=== PATIENT | female | born 1990 | race Caucasian/White ===

== ENCOUNTER 2020-05-24 14:10 | Inpatient (IN) ==
[2020-05-24] MEDS ORDERED: OXYTOCIN 30 UNITS/500 ML BAG IV PRN ×2 (15:23→19:46)
[2020-05-24 15:57] LABS: Hematocrit (blood only) 36.5 % (37-47); Hemoglobin 12.3 g/dL (12.0-16.0); Mean Corpuscular Hemoglobin 29.3 pg (25-34); Mean Corpuscular Hgb Conc 33.7 g/dL (32-36); Mean Corpuscular Volume 86.9 fL (80-100); Mean Platelet Volume 12.9 fL (7.4-10.4); Platelet Count 146 K/uL (130-400); RDW Coefficient of Variation 13.6 % (11.5-14.5); RDW Standard Deviation 43.1 fL (36.4-46.3); White Blood Count 7.86 K/uL (4.8-10.8)
--- NOTE | 2020-05-24 19:45 | History & Physical Report ---
Date of Service May 24, 2020 Assessment & Plan (1) Supervision of normal first : 29yo at 39.5 weeks GA. PROM 1. Fetus: CAT 1 2. Labor: ROM at 1320. Rare contractions. Requested time for spontaneous labor. Recommended no longer then 6hrs. 3. GBS neg 4. Vitals: WNL Admission and Anticipated Discharge Date Admission Date: May 24, 2020 History of Present Illness Primary Care Provider: Angel Adler, 29yo at 39.5 weeks GA. Presents with LOF. Denies VB, Contractions. Good FM. uncomplicated to date. OB Optional Labs: Chlamydia trachomatis RNA NOT DETECTED (NOT DETECTED) 10/22/19 Neisseria gonorrhoeae RNA NOT DETECTED (NOT DETECTED) 10/22/19 Thyroid Stimulating Hormone (TSH) 2.280 uIu/ml (0.300-4.500) 06/06/19 Labs Reviewed: Initial OB Labs (10/31/19) Blood Type & RH O+ Antibody Screen Negative HCT/HGB 13.6/40 Platelets 178 Pap Test Rubella immune RPR non reactive HBsAg negative HIV negative MCV 88.7 8-20 Week OB Labs (12/18/2019) Diabetes Screen (1hr) 66 (-) CF/SMA/cfDNA- [facility] declined MSAFP 6/24: 1HR- 132 7/6: 84/150/109 (-) GBS- [facility] Allergies Allergy/AdvReac Type Severity Reaction Status Date / Time clindamycin Allergy Hives Verified 05/24/20 15:20 Sulfa (Sulfonamide Allergy Hives Verified 05/24/20 15:20 Antibiotics) sulfamethoxazole Allergy Hives Verified 05/24/20 15:20 [From ] trimethoprim [From ] Allergy Hives Verified 05/24/20 15:20 Home Medications Home Medications Medication Instructions Recorded Confirmed Type prenat.vits,diana,zvt-[id number]-[id number] 1 tab PO DAILY 06/06/19 05/24/20 History Patient History Medical History (Updated 05/12/20 @ 11:14 by Jared Landeros Jr, MD, FACOG) HSV-1 (herpes simplex virus 1) infection Has h/o mouth ulcers - 3 lifetime outbreaks Irregular periods Surgical History H/O wrist surgery Hx of LASIK S/P tonsillectomy Family History Grandfather (Paternal) Diabetes Sister Thyroid disease Other Arthritis Breast cancer Depression Dyslipidemia Heart disease Hypertension Ovarian cyst Denies family history of Colorectal cancer Social History (Updated 10/15/19 @ 11:10 by Arelis Rene) Smoking Status: Never smoker Second Hand Exposure: No; Hx Alcohol Use: No Hx Substance Use: No Preferred Language: Filipino Communication Ability: Effective Beliefs That Will Affect Care: None marital status: marital status details: David Ambrosio(28) [phone] Current Living Situation: Spouse Current Living Situation Comment: lives with spouse, 1 dog. current occupational status: employed current occupation: [employer] Feels Safe at Home: Yes Childhood Exposure to Second-Hand Smoke: No caffeine: Yes Dental Care, Regularly: Yes Physical Activity Frequency: 3-4 Times per Week Seatbelt Use: always Sunscreen Use: Yes Do you think of yourself as: straight/heterosexual Physical Exam Constitutional: WD/WN, vitals as above Genitourinary: Manual OB Exam: + cervical dilation 3 cm, + cervical effacement 80%, + station -2 and + amniotic fluid clear, nitrazine positive and ferning present OB Exam Monitor Tracing: + external FHT monitor used, + external uterine monitor used, + category I and + normal FHT variability Results & Data ([facility]) Vital Signs (Past 12 Hours) Vital Signs Temp Pulse Resp BP 05/24/20 19:18 81 123/83 05/24/20 19:15 36.8 C 18 05/24/20 18:25 36.8 C 18 05/24/20 16:52 36.8 C 18 05/24/20 14:17 91 H 126/84 05/24/20 14:16 36.9 C 18 Coding Level of Care Code None Diagnoses Supervision of normal first Z34.00
--- NOTE | 2020-05-24 20:46 | Labor Progress Brief Note ---
Date of Service May 24, 2020 Subjective Reason For Note: Routine Evaluation Assessment & Plan (1) Supervision of normal first : 29yo at 39.5 weeks GA. PROM 1. Fetus: CAT 1 2. Labor: ROM at 1320. Rare contractions. Requested time for spontaneous labor. Discussed Pitocin. Patient agreed to augmentation. 3. GBS neg 4. Vitals: WNL Admission and Anticipated Discharge Date Admission Date: May 24, 2020 Physical Exam Genitourinary: OB Exam Abdomen: + vertex Manual OB Exam: + cervical dilation (3.5), + cervical effacement 80%, + station -2 and + amniotic fluid clear OB Exam Monitor Tracing: + external FHT monitor used, + external uterine monitor used, + category I and + normal FHT variability Results & Data ([facility]) Vital Signs (Past 12 Hours) Vital Signs Temp Pulse Resp BP 05/24/20 19:18 81 123/83 05/24/20 19:15 36.8 C 18 05/24/20 18:25 36.8 C 18 05/24/20 16:52 36.8 C 18 05/24/20 14:17 91 H 126/84 05/24/20 14:16 36.9 C 18 Coding Level of Care Code None Diagnoses Supervision of normal first Z34.00
[2020-05-24] MEDS: LACTATED RINGER'S 1,000 ML IV PRN (21:00)
[2020-05-24] MEDS ORDERED: ePHEDrine sulfate 50 MG/ML AMP ONE (22:41)
[2020-05-24] MEDS ORDERED: BUPIVACAINE 0.25% 30 ML VIAL ONE (22:42)
[2020-05-24] MEDS ORDERED: fentaNYL citrate 100 MCG/2 ML VIAL ONE (22:42)
[2020-05-24] MEDS ORDERED: fentaNYL 2MCG/ML ROPIV 1.25MG/ML 100 ML BAG EPI ONE (22:42)
[2020-05-24] MEDS ORDERED: ePHEDrine sulfate 50 MG/ML AMP IV PRN (22:48)
[2020-05-24] MEDS ORDERED: NALOXONE HCL 1 MG in SODIUM CHLORIDE 0.9% 1000ML 1,000 ML IV PRN (22:48)
[2020-05-24] MEDS ORDERED: fentaNYL 2MCG/ML ROPIV 1.25MG/ML 100 ML BAG EPI PRN (22:48)
[2020-05-24] MEDS ORDERED: NALOXONE HCL 0.4 MG/1 ML VIAL/CARP IV PRN (22:48)
[2020-05-24] MEDS ORDERED: DiphenhydrAMINE HCL 50 MG/ML VIAL IV PRN (22:48)
[2020-05-24] MEDS ORDERED: ONDANSETRON INJ 2 MG/ML 2 ML VIAL IV PRN (22:48)
--- NOTE | 2020-05-24 22:50 | Anesthesiology Consultation ---
Date of Service May 24, 2020 Assessment & Plan (1) Encounter for pre-operative examination: Chart Review Chart Review: Patient NOT seen in Pre Admission Testing and Acceptable Risk for Labor Epidural Consults Requested none History Height/Weight Height: 5 ft 6 in Weight: 98.339 kg Allergies Allergy/AdvReac Type Severity Reaction Status Date / Time clindamycin Allergy Hives Verified 05/24/20 15:20 Sulfa (Sulfonamide Allergy Hives Verified 05/24/20 15:20 Antibiotics) sulfamethoxazole Allergy Hives Verified 05/24/20 15:20 [From ] trimethoprim [From ] Allergy Hives Verified 05/24/20 15:20 Medications Home Medications Medication Instructions Recorded Confirmed Last Taken prenat.vits,diana,[id number]-[id number] 1 tab PO DAILY 06/06/19 05/24/20 Unknown Active Medications Generic Name Dose Route Start Last Admin Trade Name Freq PRN Reason Stop Dose Admin Lactated Ringer's 1,000 mls @ 125 mls/hr 05/24/20 15:23 05/24/20 22:40 Lr IV 05/26/20 15:22 999 mls/hr .Q8H PRN Titration L&D Protocol Protocol Oxytocin 30 units in 500 mls @ 4 mls/hr 05/24/20 19:46 05/24/20 21:55 Pitocin IV 05/26/20 19:45 0.24 units/hr .Q24H PRN 4 mls/hr Labor Induction/Augmentation Titration Protocol 0.24 UNITS/HR Past Medical History Medical History HSV-1 (herpes simplex virus 1) infection Has h/o mouth ulcers - 3 lifetime outbreaks Irregular periods Exercise / Class Metabolic Activity II 4-5 Yardwork/Stairs/Walk up hill Past Family History Family History Grandfather (Paternal) Diabetes Sister Thyroid disease Other Arthritis Breast cancer Depression Dyslipidemia Heart disease Hypertension Ovarian cyst Denies family history of Colorectal cancer Past Surgical History Surgical History H/O wrist surgery Hx of LASIK S/P tonsillectomy Past Anesthesia History No Hx of Anesthesia Complications and No Family Hx of Anesthesia Complications History of PONV No Hx of PONV and No Hx of Motion Sickness Social History Smoking Status: Never smoker Do You Dip or Chew Tobacco: No Hx Alcohol Use: No Hx Substance Use: No Physical Exam Vital Signs Last Vital Signs Temp 36.5 C 05/24/20 21:11 Pulse 71 05/24/20 21:37 Resp 18 05/24/20 21:11 BP 116/77 05/24/20 21:37 Testing Laboratory Results 05/24/20 15:49
[2020-05-25] MEDS: LACTATED RINGER'S 1,000 ML IV PRN ×3 (00:29→16:50)
[2020-05-25] MEDS ORDERED: Nursing to Pharmacy Communication SCH (02:00)
[2020-05-25] MEDS ORDERED: HYDROCORTISONE ACETATE 25 MG SUPP PR PRN (05:03)
[2020-05-25] MEDS ORDERED: BENZOCAINE 20% AER SPR 82.5 GM CAN EXT PRN (05:03)
[2020-05-25] MEDS ORDERED: DIPHTHERIA/TETANUS/PERTUSSIS 0.5 ML SYR/VIAL IM ONE (05:03)
[2020-05-25] MEDS ORDERED: SUPERCREAM 0.870% 15 GM JAR EXT PRN (05:03)
[2020-05-25] MEDS ORDERED: bisacodyL 10 MG SUPP PR PRN (05:03)
[2020-05-25] MEDS ORDERED: OXYTOCIN 30 UNITS/500 ML BAG IV PRN (05:03)
[2020-05-25] MEDS ORDERED: ACETAMINOPHEN 325 MG TAB PO PRN (05:03)
[2020-05-25] MEDS ORDERED: METHYLERGONOVINE MALEATE 0.2 MG/ML AMP IM STA (06:16)
[2020-05-25] MEDS ORDERED: METHYLERGONOVINE MALEATE 0.2 MG/ML AMP ONE (06:21)
[2020-05-25] MEDS ORDERED: BUTORPHANOL TARTRATE 1 MG/ML VIAL ONE (06:50)
[2020-05-25] MEDS ORDERED: SODIUM CHLORIDE 0.9% 250 ML IV PRN ×3 (06:53→08:42)
[2020-05-25 07:06] LABS: Hematocrit (blood only) 33.8 % (37-47); Hemoglobin 10.9 g/dL (12.0-16.0); Mean Corpuscular Volume 86.9 fL (80-100); Platelet Count 173 K/uL (130-400); RDW Coefficient of Variation 13.7 % (11.5-14.5); Red Blood Count 3.89 M/uL (4.2-5.4); White Blood Count 16.92 K/uL (4.8-10.8)
[2020-05-25] MEDS ORDERED: CEFAZOLIN 250 MG/ML 1 GM VIAL ONE (07:26)
[2020-05-25] MEDS ORDERED: ONDANSETRON INJ 2 MG/ML 2 ML VIAL ONE (07:26)
[2020-05-25] MEDS ORDERED: LIDOCAINE/EPINEPHRINE 2% 1:200,000 20 ML SDV ONE (07:26)
[2020-05-25] MEDS ORDERED: PHENYLEPHRINE 100MCG/ML 5ML SYR ONE (07:26)
[2020-05-25 07:33] LABS: Mean Corpuscular Hgb Conc 32.2 g/dL (32-36)
[2020-05-25 07:44] LABS: Fibrinogen 460 mg/dl (184-400); Partial Thromboplastin Ratio 0.9; Partial Thromboplastin Time 26.1 Seconds (21.0-31.0); Prothrombin Time 10.1 Seconds (9.0-12.0)
[2020-05-25] MEDS ORDERED: miSOPROStoL 200 MCG TAB PR ONE ×2 (08:09→08:41)
[2020-05-25] MEDS ORDERED: ePHEDrine sulfate 50 MG/ML AMP ONE (08:09)
[2020-05-25] MEDS ORDERED: CARBOPROST TROMETHAMINE 250 MCG/ML AMPUL IM ONE (08:09)
[2020-05-25] MEDS ORDERED: CARBOPROST TROMETHAMINE 250 MCG/ML AMPUL ONE (08:32)
[2020-05-25] MEDS: PRENATAL VITAMIN 1 TAB PO SCH (08:47)
[2020-05-25] MEDS: DOCUSATE SODIUM 100 MG CAP PO SCH ×2 (08:47→20:29)
--- NOTE | 2020-05-25 08:48 | Anesthesia Procedure Note ---
Date of Service May 25, 2020 Anesthesia Post Epidural Note Vital Signs Vital Signs: Temp Pulse Resp BP Pulse Ox 36.5 C 83 21 142/96 H 100 05/25/20 08:04 05/25/20 08:45 05/25/20 08:04 05/25/20 08:42 05/25/20 08:45 Pain Intensity Right Abdomen: Pain Intensity: 0 Left Wrist: Pain Intensity: 2 Notes Mental Status: alert / awake / arousable and participated in evaluation Patient Amnestic to Procedure: No Nausea / Vomiting: improving with treatment Pain: adequately controlled Airway Patency, RR, SpO2: stable & adequate BP & HR: stable & adequate and see Notes below Hydration State: stable & adequate Neuraxial Anesthesia: was administered and sensory block is resolving Anesthetic Complications: no major complications apparent and Pt Satisfied with anesthetic care Epidural: Removed without complications and With tip intact
--- NOTE | 2020-05-25 08:54 | Communication Note ---
Date of Service: May 25, 2020 Called by OB nursing staff as patient with hemorrhage and concern for retained placenta. Patient with slightly elevated heart rate but preserved blood pressure. Taken emergently back to the OR and placed on STD ASA monitors. A total of 15ml 2% lidocaine bolused via epidural incrementally until T6 sensory change level obtained. Patient placed in stirrups for procedure. Supplemental oxygen given (2L NC). Had to treat patient's blood pressure throughout procedure with boluses of ephedrine and phenylephrine. Hemabate was given IM per surgeon request. Also administered 1 unit pRBC given blood loss. Patient c/o some mid sternal chest burning and then vomited. Blood pressure continued to be treated but temp normal and lung sounds clear. TRALI part of differential but low likelihood at this time. A second IV was started in the operating room by OB nurse. Patient tolerated procedure (included Bakri balloon). Patient was taken to recovery in stable condition. Supplemental oxygen continued. Patient temp normal and vitals stable. A second unit of pRBC was planned by OB attending. Full report given to recovery (OB) nurse. Also signed out to sedimentationist anesthesiologist. All questions answered. Also spoke to OB attending and stated if patient has worsening hypoxia and chest pain, do CXR to r/u pulmonary infiltrates (again to r/o TRALI). David Castañeda MD Staff Anesthesiologist
--- NOTE | 2020-05-25 09:01 | Post Operative Brief Note ---
PG Immediate Post Op with CF Date of Surgery May 25, 2020 Pre & Post Diagnosis Operation Date: 05/25/20 07:00 <No data on this case meets the specified criteria> I identified the patient and participated in the time-out.: Yes Procedure Operation Date: 05/25/20 07:00 Actual Procedures p Dilatation and Curettage(Bilateral) - He Wallace MD Surgeon He Wallace MD Beater Engineer Helper None Estimated Blood Loss 600 Findings Consistent with Post-Op Diagnosis Drains Bello Catheter and Other (BAKRI (FILLED WITH 360 ML STERILE WATER)) OB Procedure charges OB Charges 36684G Bakri BEARING MACHINE OPERATOR Minor Procedure Codes D&E/D&C 76887 D&C
[2020-05-25] MEDS: METHYLERGONOVINE MALEATE 0.2 MG TAB PO SCH ×4 (10:08→20:29)
--- NOTE | 2020-05-25 10:51 | Delivery Summary ---
DATE OF OPERATION: 05/25/2020 PROCEDURE: Normal spontaneous vaginal delivery with bilateral labial laceration repairs. SURGEON: He Wallace MD. PREOPERATIVE DIAGNOSES: 1. Single intrauterine at 39 weeks 6 days gestational age. 2. Premature rupture of membranes. POSTOPERATIVE DIAGNOSES: 1. Single intrauterine at 39 weeks 6 days gestational age. 2. Premature rupture of membranes. 3. Status post delivery. ESTIMATED BLOOD LOSS DURING THE PROCEDURE: 400 mL. DRAINS: Straight cath at the completion of case for 100 mL. FLUIDS: Continuous lactated Ringer. URINE OUTPUT: Per drains. DESCRIPTION OF PROCEDURE: The patient progressed to 10 cm dilated, 100% effaced, +1 station, felt a strong urge to push and pushed for approximately 2 hours to achieve delivery. The head of the presented in LANDRY position, restituted to left transverse. No nuchal cord was noted. Body and shoulders quickly followed. was delivered to the maternal abdomen and was noted to have good tone, but not crying. An attempt at stimulation did not achieve a spontaneous cry and the cord was double clamped and cut after approximately 30 seconds. The was then taken to the waiting nursery staff for further evaluation and was noted to cry at approximately 40-45 seconds of life and was vigorous thereafter. The cord blood was then obtained. Attention was then turned to deliver placenta, which did not immediately present and bilateral labial lacerations were repaired with 3-0 Vicryl in single interrupted stitch. After completion of the repair, the placenta was noted to be at the introitus and presented spontaneously with little to no traction. The patient's bleeding was noted to be minimal at that time with uterine massage and emptying the bladder with straight cath for 100 mL. A decision was made to end the case at that time. Both mother and were in stable condition. Needle, sponge and instrument counts were correct at the completion of the case. I attest to the content of the Intraoperative Record and any orders documented therein. Any exception s are noted below.
--- NOTE | 2020-05-25 11:01 | Operative Report (OR) ---
DATE OF OPERATION: 05/25/2020 PROCEDURES: 1. Exam under anesthesia. 2. Curettage of uterus with banjo curette. 3. Bakri balloon placement. SURGEON: He Wallace MD. PREOPERATIVE DIAGNOSIS: Suspected retained placenta. POSTOPERATIVE DIAGNOSIS: Retained placenta, status post procedure. ESTIMATED BLOOD LOSS: In the OR, 600 mL. Total blood loss 2400 mL including delivery and bleeding post-delivery and prior to OR. URINE OUTPUT: Per Bello catheter. FLUIDS: Continuous lactated Ringer. One unit of packed red blood cells initiated in the OR. INDICATIONS: Catherine is a 29-year-old , presented with premature rupture of membranes. The patient was augmented and achieved a spontaneous vaginal delivery, which appeared to be uncomplicated. The patient was noted to have increased bleeding with removal of several large clots approximately an hour after delivery. The patient was given a dose of Methergine after removal of clots and fundus was initially firmer, but the patient was noted to have again retained products. The patient was evaluated and was suspected to have retained placenta. DESCRIPTION OF PROCEDURE: The patient was taken to the operating room after consents were ensured. Upon presentation, she was properly identified. The patient's epidural was bolused to achieve adequate surgical levels. A timeout was performed. The patient was prepped and draped in normal sterile fashion. A right angle retractor was placed in the vagina to visualize the cervix. A banjo curette was then used to remove the retained placenta and 2 quarter sized pieces of placenta were removed. A full curettage of the uterine lining was performed with no additional clots noted. Gentle uterine massage was performed and normal post-delivery bleeding was noted. 800 mcg of Cytotec were placed per rectum. A Bakri balloon was placed with 360 mL of fluid. A Bello catheter was then placed. Needle, sponge and instrument counts were correct at the completion of the case. The patient was taken to the recovery room in stable condition. I attest to the content of the Intraoperative Record and any orders documented therein. Any exception s are noted below.
[2020-05-25] MEDS: OXYCODONE/ACETAMINOPHEN 5mg/325mg TAB PO PRN ×2 (11:17→20:38)
[2020-05-25] MEDS: IBUPROFEN 600 MG TAB PO PRN (11:45)
[2020-05-25 14:12] LABS: Hematocrit (blood only) 29.2 % (37-47); Hemoglobin 10.1 g/dL (12.0-16.0)
[2020-05-25] MEDS: CEFAZOLIN 2000MG 2,000 MG/15 ML SYR IV SCH ×2 (14:59→23:30)
[2020-05-26] MEDS: CEFAZOLIN 2000MG 2,000 MG/15 ML SYR IV SCH (06:34)
[2020-05-26] MEDS: IBUPROFEN 600 MG TAB PO PRN ×4 (06:43→23:40)
[2020-05-26 07:09] LABS: Hematocrit (blood only) 23.5 % (37-47)
--- NOTE | 2020-05-26 07:59 | Obstetrical Progress Note ---
Date of Service May 26, 2020 Assessment & Plan (1) Encounter for care and examination after delivery: 29yo s/p complicated by PPH from retained products. Doing well now. Bleeding normal. Ambulating well without symptoms of anemia. Continue to monitor with routine OB care Subjective Ambulation: ambulating normally Voiding: no voiding problems Passing Gas:: Yes Diet Tolerance:: regular diet Lochia:: Moderate Feeding Type:: breast feeding Physical Exam Constitutional WD/WN, vitals as above Respiratory normal respiratory effort; no respiratory distress and no labored breathing Gastrointestinal (Abdomen) Inspection/Auscultation: abdomen normal to inspection; abdomen not distended Percussion/Palpation: abdomen soft; abdomen nontender, no guarding and abdomen not rigid Genitourinary OB Exam Abdomen: + fundal height Fundus: + firm and + relation to umbilicus (Below); not tender and not boggy Results & Data ([facility]) Vital Signs (Past 12 Hours) Vital Signs Temp Pulse Pulse Resp BP BP Pulse Ox 05/26/20 04:05 36.8 C 79 20 111/76 96 05/26/20 00:39 37.1 C 102 H 20 130/85 98 05/25/20 23:30 136 H 20 141/78 H 05/25/20 23:28 136 H 141/78 H 05/25/20 21:40 82 114/58 L
[2020-05-26] MEDS: PRENATAL VITAMIN 1 TAB PO SCH (08:53)
[2020-05-26] MEDS: METHYLERGONOVINE MALEATE 0.2 MG TAB PO SCH (08:53)
[2020-05-26] MEDS: DOCUSATE SODIUM 100 MG CAP PO SCH ×2 (08:53→20:05)
[2020-05-26] MEDS ORDERED: FERROUS SULFATE 325 MG TAB PO ONE (13:00)
[2020-05-26] MEDS ORDERED: bisacodyL 5 MG TABEC PO SCH (20:00)
[2020-05-27] MEDS: IBUPROFEN 600 MG TAB PO PRN ×2 (03:31→08:34)
--- NOTE | 2020-05-27 06:54 | Obstetrical Progress Note ---
Date of Service May 27, 2020 Assessment & Plan (1) Encounter for care and examination after delivery: Ena Ambrosio is a 29yo who presented to L&D for @ 39.5wga complicated by PPH 2/2 retained products, PPD#3. -doing well, ambulating, tolerating regular diet, having BMs, reports no symptoms -BP stable, no signs or symptoms of infection -O+, RI, GBS neg -routine care -discharge today -f/u in [address] Wallace Subjective Ambulation: ambulating normally Voiding: no voiding problems Passing Gas:: Yes Diet Tolerance:: regular diet Lochia:: Small Constitutional: no fever and no chills Respiratory: no cough and no dyspnea Cardiovascular: no chest pain, no palpitations and no edema Gastrointestinal: no nausea and no vomiting Genitourinary (female): no dysuria Physical Exam Constitutional no acute distress Respiratory normal respiratory effort, lungs clear to auscultation Cardiovascular RRR, no murmur, no edema Gastrointestinal (Abdomen) Inspection/Auscultation: normal bowel sounds Percussion/Palpation: abdomen soft Genitourinary uterine fundus firm, palpable 3cm below umbilicus Results & Data ([facility]) Vital Signs (Past 12 Hours) Vital Signs Temp Pulse Resp BP BP Pulse Ox 05/27/20 03:25 36.4 C L 80 18 104/69 98 05/26/20 23:20 36.9 C 80 20 110/70 97 05/26/20 19:30 36.9 C 77 18 111/71 97 Resident Activity Tracking Resident Involvement: Resident Care Provided Care Provided: OB Delivery
[2020-05-27] MEDS ORDERED: FERROUS SULFATE 325 MG TAB PO SCH (08:00)
[2020-05-27] MEDS: DOCUSATE SODIUM 100 MG CAP PO SCH (08:34)
[2020-05-27] MEDS: PRENATAL VITAMIN 1 TAB PO SCH (08:34)
== END 2020-05-27 14:30 | disposition home or self-care (01) | DRG 798 ==
LOC: OPB 14:10 → 4S1 14:11 → 4S2 05-26 00:14

== ENCOUNTER 2022-03-30 08:52 | Inpatient (IN) ==
[2022-03-30] MEDS ORDERED: OXYTOCIN 30 UNITS/500 ML BAG IV PRN ×3 (09:42→16:07)
[2022-03-30] MEDS ORDERED: LACTATED RINGER'S 1,000 ML IV PRN (09:42)
[2022-03-30] MEDS ORDERED: SODIUM CHLORIDE 0.9% 250 ML IV PRN (09:42)
--- NOTE | 2022-03-30 09:48 | History & Physical Report ---
Date of Service March 30, 2022 Assessment & Plan (1) Encounter for supervision of normal in multigravida: Plan: Admit to L&D. EFM/toco. Labs. D/t h/o PPH, will type and cross 2u to have available if needed. Discussed that patient is hopeful that she will labor naturally, will plan to perform admission and then ok to ambulate after. Will plan to recheck cervix. If she begins to make change, then will continue to labor naturally. If no cervix change or if ctx do not increase, pt is amenable to augmentation with either AROM or pitocin. She is planning for an epidural. History of Present Illness Chief Complaint: IOL Primary Care Provider: Angel Adler, DO 31yo @ 40 01/16, here for IOL. She had membranes sweeped in the office yesterday, and started behzad around 6:45 this morning. + movement, no vaginal bleeding, no leaking fluid. Significant history of hemorrhage in prior delivery - required D&C and Bakri balloon, 2u PRBCs. COVID 03/14/22. Allergies Allergy/AdvReac Type Severity Reaction Status Date / Time clindamycin Allergy Hives Verified 03/29/22 13:06 Sulfa (Sulfonamide Allergy Hives Verified 03/29/22 13:06 Antibiotics) sulfamethoxazole Allergy Hives Verified 03/29/22 13:06 [From ] trimethoprim [From ] Allergy Hives Verified 03/29/22 13:06 Home Medications Medication Instructions Recorded Confirmed Type prenat.vits,diana,dhu-[id number]-[id number] 1 tab PO DAILY 08/17/21 03/30/22 History Patient History Medical History History of chicken pox HSV-1 (herpes simplex virus 1) infection Has h/o mouth ulcers - 3 lifetime outbreaks Irregular periods hemorrhage Surgical History H/O wrist surgery Hx of LASIK S/P tonsillectomy Family History Grandfather (Paternal) Diabetes Sister Thyroid disease Other Arthritis Breast cancer Depression Dyslipidemia Heart disease Hypertension Ovarian cyst Denies family history of Colorectal cancer Social History (Updated 03/30/22 @ 09:08 by Sofia Catherine Smoking Status: Never smoker Second Hand Exposure: No; Hx Alcohol Use: No Hx Substance Use: No Preferred Language: French Communication Ability: Effective Pt Escort Required: No Beliefs That Will Affect Care: None marital status: marital status details: David Ambrosio(30) [phone] Current Living Situation: Spouse and Family Current Living Situation Comment: lives with spouse, child, dog current occupational status: unemployed current occupation: homemaker Other Information That Helps Us Care for You: No Feels Safe at Home: Yes Safety Concerns: Feels Safe At This Time Childhood Exposure to Second-Hand Smoke: No caffeine: Yes Dental Care, Regularly: Yes Physical Activity Frequency: 3-4 Times per Week Seatbelt Use: always Sunscreen Use: Yes Do you think of yourself as: straight/heterosexual Assistive Devices: None Review of Systems All systems reviewed & are unremarkable except as noted in HPI & below Physical Exam Physical Exam: FHT Cat 1 [place] Q 5-7 min SVE 6/70/-1 Constitutional: WD/WN, vitals as above Respiratory: normal respiratory effort, lungs clear to auscultation no respiratory distress Cardiovascular: Rate/Rhythm: regular rate and regular rhythm Gastrointestinal (Abdomen): Inspection/Auscultation: abdomen normal to inspection Percussion/Palpation: abdomen soft; abdomen nontender Gravid. No s/s chorio or abruption. Skin: no rashes, warm and dry Psychiatric: A+Ox3, euthymic affect Results & [facility] ([facility]) Vital Signs (Past 12 Hours) Vital Signs Temp Pulse Resp BP 03/30/22 09:02 18 03/30/22 09:02 36.6 C 18 03/30/22 09:03 98 H 130/83 Coding Level of Care Code None Diagnoses Encounter for supervision of normal in multigravida Z34.80
[2022-03-30 10:20] LABS: Hematocrit (blood only) 35.4 % (34.1-44.9); Mean Corpuscular Hemoglobin 29.7 pg (25.0-34.0); Mean Corpuscular Hgb Conc 33.9 g/dL (32.0-36.0); Mean Corpuscular Volume 87.6 fL (80.0-100.0); Mean Platelet Volume 12.9 fL (9.4-12.3); Platelet Count 153 K/uL (130-400); RDW Coefficient of Variation 13.4 % (11.5-14.5); RDW Standard Deviation 42.7 fL (36.4-46.3); Red Blood Count 4.04 M/uL (3.93-5.22); White Blood Count 9.84 K/ul (4.8-10.8)
--- NOTE | 2022-03-30 12:57 | Labor Progress Brief Note ---
Date of Service March 30, 2022 Subjective Patient has ambulated. Ctx Q7min SVE /-1 FHT Cat 1 Discussed management - recommended pitocin to augment current contractions, to get into better labor pattern. Patient expresses that last delivery, she felt like she went from 0 to 100 very quickly with pitocin and almost did not have time for epidural. Recommended that we start pitocin at 1 and increase gradually, ask for epidural at whatever point she begins to feel pain. Alternatively, could do epidural now and then start pit - she elects to wait on epidural at this time and will let us know. Results & Data ([facility]) Vital Signs (Past 12 Hours) Vital Signs Temp Pulse Resp BP 03/30/22 11:19 18 03/30/22 11:19 36.7 C 83 18 129/87 03/30/22 09:02 18 03/30/22 09:02 36.6 C 18 03/30/22 09:03 98 H 130/83 Coding Level of Care Code None
[2022-03-30] MEDS ORDERED: ePHEDrine sulfate 50 MG/ML AMP ONE (15:29)
[2022-03-30] MEDS ORDERED: fentaNYL citrate 100 MCG/2 ML VIAL ONE (15:30)
[2022-03-30] MEDS ORDERED: SODIUM CHLORIDE 0.9% INJ 10 ML VIAL ONE (15:30)
[2022-03-30] MEDS ORDERED: BUPIVACAINE 0.25% 30 ML VIAL ONE (15:30)
[2022-03-30] MEDS ORDERED: LIDOCAINE 2%/EPINEPHRINE 1:200,000 20 ML SDV ONE (15:30)
[2022-03-30] MEDS ORDERED: fentaNYL 2MCG/ML ROPIVACAINE 1.25MG/ML 100 ML BAG EPI ONE (15:30)
[2022-03-30] MEDS ORDERED: ePHEDrine sulfate 50 MG/ML AMP IV PRN (15:38)
[2022-03-30] MEDS ORDERED: diphenhydrAMINE 50 MG/ML VIAL IV PRN (15:38)
[2022-03-30] MEDS ORDERED: fentaNYL 2MCG/ML ROPIVACAINE 1.25MG/ML 100 ML BAG EPI PRN (15:38)
[2022-03-30] MEDS ORDERED: NALOXONE HCL 1 MG in SODIUM CHLORIDE 0.9% 1000ML 1,000 ML IV PRN (15:38)
[2022-03-30] MEDS ORDERED: NALBUPHINE HCL INJ 10 MG/ML AMP IV PRN (15:38)
[2022-03-30] MEDS ORDERED: NALOXONE HCL 0.4 MG/1 ML VIAL/CARP IV PRN (15:38)
[2022-03-30] MEDS ORDERED: ONDANSETRON INJ 2 MG/ML 2 ML VIAL IV PRN (15:38)
--- NOTE | 2022-03-30 15:38 | Anesthesiology Consultation ---
Date of Service March 30, 2022 Assessment & Plan ASA ASA2 Proposed Anesthesia Anesthesia Type: General Risk / Benefits Reviewed With: PT / POA / Parent / Guardian, Accepts Plan and Informed Consent Obtained History Height/Weight Height: 5 ft 7 in Weight: 98.892 kg Allergies Allergy/AdvReac Type Severity Reaction Status Date / Time clindamycin Allergy Hives Verified 03/29/22 13:06 Sulfa (Sulfonamide Allergy Hives Verified 03/29/22 13:06 Antibiotics) sulfamethoxazole Allergy Hives Verified 03/29/22 13:06 [From ] trimethoprim [From ] Allergy Hives Verified 03/29/22 13:06 Medications Home Medications Medication Instructions Recorded Confirmed Last Taken prenat.vits,diana,snq-[id number]-jiqjh 1 tab PO DAILY 08/17/21 03/30/22 03/28/22 09:00 Active Medications Generic Name Dose Route Start Last Admin Trade Name Freq PRN Reason Stop Dose Admin Lactated Ringer's 1,000 mls @ 125 mls/hr 03/30/22 09:42 03/30/22 13:08 Lr IV 04/01/22 09:41 125 mls/hr .Q8H PRN Administration L&D Protocol Protocol Oxytocin 30 units in 500 mls @ 9 mls/hr 03/30/22 12:54 03/30/22 15:15 Pitocin IV 04/01/22 12:53 0.54 units/hr .Q24H PRN 9 mls/hr Labor Induction/Augmentation Titration Protocol 0.54 UNITS/HR Past Medical History Medical History History of chicken pox HSV-1 (herpes simplex virus 1) infection Has h/o mouth ulcers - 3 lifetime outbreaks Irregular periods hemorrhage Exercise / Class Metabolic Activity II 4-5 Yardwork/Stairs/Walk up hill Past Family History Family History Grandfather (Paternal) Diabetes Sister Thyroid disease Other Arthritis Breast cancer Depression Dyslipidemia Heart disease Hypertension Ovarian cyst Denies family history of Colorectal cancer Past Surgical History Surgical History H/O wrist surgery Hx of LASIK S/P tonsillectomy Past Anesthesia History No Hx of Anesthesia Complications and No Family Hx of Anesthesia Complications History of PONV No Hx of PONV and No Hx of Motion Sickness Social History Smoking Status: Never smoker Hx Alcohol Use: No Hx Substance Use: No substance use type: does not use Review of Systems denies fever/cough/ colds/ chest pain/ SOB/ KIARA denies KIARA Physical Exam Vital Signs Last Vital Signs Temp 36.3 C L 03/30/22 15:03 Pulse 69 03/30/22 15:03 Resp 18 03/30/22 15:03 BP 120/80 03/30/22 15:03 ENMT Mouth: no TMJ abnormality and no dentition abnormality Thyromental Distance: > or= 3.5 Finger Breadths Mallampati Class: II Neck neck extension not limited Respiratory normal respiratory effort; no respiratory distress Auscultation: lungs clear to auscultation bilaterally Cardiovascular Rate/Rhythm: regular rate and regular rhythm Neurologic moves all extremities Psychiatric Orientation: alert and oriented x 3 Testing Laboratory Results 03/30/22 10:11 Blood Type O Positive 03/30/22 10:11 Antibody Screen NEGATIVE 03/30/22 10:11
[2022-03-30] MEDS ORDERED: ACETAMINOPHEN 325 MG TAB PO PRN (16:07)
[2022-03-30] MEDS ORDERED: DIPHTHERIA/TETANUS/PERTUSSIS 0.5 ML SYR/VIAL IM ONE (16:07)
[2022-03-30] MEDS ORDERED: oxyCODONE/ACETAMINOPHEN 5mg/325mg TAB PO PRN (16:07)
[2022-03-30] MEDS ORDERED: HYDROCORTISONE ACETATE 25 MG SUPP PR PRN (16:07)
[2022-03-30] MEDS ORDERED: bisacodyL 10 MG SUPP PR PRN (16:07)
[2022-03-30] MEDS ORDERED: BENZOCAINE 20% AER SPR 82.5 GM CAN EXT PRN (16:07)
--- NOTE | 2022-03-30 16:10 | Delivery Summary ---
Vaginal Delivery Summary Date of Service March 30, 2022 Vaginal Delivery Summary [facility] Vaginal Delivery Summary: Pre-delivery diagnoses: 31yo @ 40 5/7, postdates IOL, h/o hemorrhage in G1 Post-delivery diagnoses: same Procedure: spontaneous vaginal delivery Surgeon: Barbara Cheung DO Complications: none Findings: Viable male . Apgars: 8/9. Weight pending, please see nursery records. Estimated blood loss: 300ml Description of delivery: The patient began to feel painful with contractions, and requested epidural. While waiting for epidural, pain became severe very quickly. Cervix exam was 9/100/0. Then shortly after cervix exam, SROM for clear fluid, and repeat cervix exam showed 10/100/+1 station. Discussed briefly with patient that she would likely not have time for epidural at this point, and quicker pain relief would come from delivery of baby. She then began to push. She spontaneously vaginally delivered a viable from the cephalic presentation. The head delivered in MATT position. No nuchal cord. The anteri or shoulder delivered, followed by the posterior shoulder, followed by the body. The baby was placed on mother's abdomen and a spontaneous cry was heard. The cord was doubly clamped and cut. Cord blood was obtained. The placenta was delivered spontaneously intact with a 3-vessel cord. The uterus and vagina were swept of clots and debris. IV pitocin was given. The uterus became firm. The cervix, vagina, and perineum were inspected and no lacerations were noted. Excellent hemostasis was observed. The mother and baby are recovering in stable and good condition in the room. Sponge and instrument counts were correct x 2. Barbara Cheung DO [facility], [facility] Vaginal Delivery Charge Vaginal Delivery Codes: 34427 global code for the antepartum, delivery, and post- Delivery Type Details: [facility]
[2022-03-30] MEDS: IBUPROFEN 600 MG TAB PO PRN ×2 (19:04→23:46)
[2022-03-30] MEDS: DOCUSATE SODIUM 100 MG CAP PO SCH (21:32)
[2022-03-31] MEDS: IBUPROFEN 600 MG TAB PO PRN ×2 (04:20→08:30)
--- NOTE | 2022-03-31 06:05 | Obstetrical Progress Note ---
Date of Service <Elizabeth Mendez, DO - Last Filed: 03/31/22 06:30> March 31, 2022 Assessment & Plan <Elizabeth Mendez DO - Last Filed: 03/31/22 06:30> (1) Status post vaginal delivery: Plan continue OOB, ambulation, diet as tolerated <Barbara Cheung, DO - Last Filed: 03/31/22 07:50> (1) Status post vaginal delivery: Subjective <Elizabeth Mendez, DO - Last Filed: 03/31/22 06:30> Catherine is a 31 y/o female who is now PPD # 1 following vaginal delivery at 40 5/7. Reports feeling well overall this morning. Mild abdominal cramping & pain well managed on analgesics. Voiding. Tolerating meals overnight and able to ambulate some. Is passing gas and and had a bowel movements. Some persistent lochia with some improvement this morning. Breast feeding. Review of Systems Denies fever, chills, sweats Denies shortness of breath, difficulty breathing, chest pain, palpitations, chest pressure. Denies breast pain. Denies dysuria. Denies headache or changes in vision. Physical Exam <Elizabeth Mendez DO - Last Filed: 03/31/22 06:30> General: Alert, oriented. No acute distress. Cardiac: Regular rate and rhythm, no murmurs/rubs/gallops. Respiratory: Clear to auscultation bilaterally a/p, no wheezes/rales/rhonchi. No increased work of breathing. Symmetrical chest rise. No respiratory distress. Abdomen: Soft, nontender, nondistended. Bowel sounds present. Uterus: Uterine fundus firm, palpable 2 cm below umbilicus. Lower Extremities: No lower extremity edema or swelling. No deep calf pain. Barak's negative bilaterally. Results & Data ([facility]) <Elizabeth Mendez, DO - Last Filed: 03/31/22 06:30> Vital Signs (Past 12 Hours) Vital Signs Temp Pulse Pulse Resp BP BP Pulse Ox 03/31/22 04:17 36.5 C 55 L 15 118/81 97 03/30/22 23:47 36.7 C 65 16 127/78 97 03/30/22 19:15 37.1 C 77 16 125/82 98 03/30/22 18:08 36.7 C 18 03/30/22 18:25 108 H 134/65 03/30/22 18:09 76 122/80 O2 Del Method 03/31/22 04:17 Room Air 03/30/22 23:47 Room Air 03/30/22 19:15 Room Air 03/30/22 18:08 03/30/22 18:25 03/30/22 18:09 <Barbara Cheung, - Last Filed: 03/31/22 07:50> Co-Signing Physician Notes Resident Physician Supervision Note: I interviewed and examined the patient. Discussed with Dr. Mendez and agree with findings and plan as documented in the note. Any exceptions or clarifications are listed here: PPD#1 doing well, desires DC home today. Reviewed DC instructions, followup PP 6w. Documented By: Barbara Cheung DO Resident Activity Tracking <Elizabeth Mendez, - Last Filed: 03/31/22 06:30> Resident Involvement: Resident Care Provided Care Provided: OB Delivery (Post )
[2022-03-31 06:17] LABS: Hematocrit (blood only) 36.2 % (34.1-44.9); Hemoglobin 12.1 g/dl (12.0-16.0); Mean Corpuscular Hemoglobin 29.4 pg (25.0-34.0); Mean Corpuscular Hgb Conc 33.4 g/dL (32.0-36.0); Mean Corpuscular Volume 87.9 fL (80.0-100.0); Mean Platelet Volume 12.9 fL (9.4-12.3); Platelet Count 145 K/uL (130-400); RDW Coefficient of Variation 13.3 % (11.5-14.5); RDW Standard Deviation 42.7 fL (36.4-46.3); Red Blood Count 4.12 M/uL (3.93-5.22); White Blood Count 12.14 K/ul (4.8-10.8)
[2022-03-31] MEDS: DOCUSATE SODIUM 100 MG CAP PO SCH (07:42)
[2022-03-31] MEDS ORDERED: PRENATAL VITAMIN 1 TAB PO SCH (08:00)
[2022-03-31] MEDS ORDERED: bisacodyL 5 MG TABEC PO SCH (20:00)
== END 2022-03-31 18:30 | disposition home or self-care (01) | DRG 807 ==
LOC: OPB 08:52 → 4S1 08:53 → 4E2 18:55

== ENCOUNTER 2024-03-08 06:48 | Inpatient (IN) ==
[2024-03-08] MEDS ORDERED: OXYTOCIN 30 UNITS/NSS 30 UNITS/500 ML BAG IV PRN (16:44)
[2024-03-08] MEDS ORDERED: LIDOCAINE 1% LOCAL 20 ML VIAL INFIL PRN (16:44)
[2024-03-08] MEDS: LACTATED RINGER'S 1,000 ML IV PRN (17:28)
[2024-03-08 17:35] LABS: Hematocrit (blood only) 36.3 % (37.0-47.0); Hemoglobin 12.2 g/dl (12.0-16.0); Mean Corpuscular Hemoglobin 28.4 pg (25.0-34.0); Mean Corpuscular Hgb Conc 33.6 g/dL (32.0-36.0); Mean Corpuscular Volume 84.6 fL (80.0-100.0); Mean Platelet Volume 12.8 fL (9.4-12.4); Platelet Count 123 K/uL (130-400); RDW Coefficient of Variation 13.3 % (11.5-14.5); RDW Standard Deviation 40.7 fL (36.4-46.3); Red Blood Count 4.29 M/uL (4.20-5.40); White Blood Count 6.41 K/ul (4.8-10.8)
--- NOTE | 2024-03-08 17:44 | History & Physical Report ---
Date of Service March 08, 2024 Assessment & Plan (1) Encounter for induction of labor: Plan admit, iv, labs. epidural when desires. start pitocin. fhts categ 1. Admission and Anticipated Discharge Date Admission Date: March 08, 2024 History of Present Illness Chief Complaint: induction of labor Primary Care Provider: Angel Adler, 33yo at 39+wks ega presents to LD for planned elective induction of labor. She denies rom, vb. +FM. Notes trauma from her last 2 births, ie. pph with 1st and then rapid delivery with 2nd after rom and large baby. Had 32wk growth us and aga. RH pos , RI, GBS neg. OBH: x 2. GYNH: nl paps, no stds Allergies Allergy/AdvReac Type Severity Reaction Status Date / Time clindamycin Allergy Hives Verified 03/07/24 10:44 Sulfa (Sulfonamide Allergy Hives Verified 03/07/24 10:44 Antibiotics) sulfamethoxazole Allergy Hives Verified 03/07/24 10:44 [From ] trimethoprim [From ] Allergy Hives Verified 03/07/24 10:44 Home Medications Medication Instructions Recorded Confirmed Type prenat.vits,diana,jvv-[id number] 1 tab PO DAILY 08/17/21 03/07/24 History Patient History Medical History (Updated 03/08/24 @ 18:11 by Chante Jane MD, FACOG) hemorrhage History of chicken pox Encounter for care and examination after delivery Encounter for pre-operative examination HSV-1 (herpes simplex virus 1) infection Has h/o mouth ulcers - 3 lifetime outbreaks Irregular periods Surgical History S/P dilatation and curettage Status post vaginal delivery H/O wrist surgery S/P tonsillectomy Hx of LASIK Family History Grandfather (Paternal) Diabetes Sister Thyroid disease Other Arthritis Breast cancer Depression Dyslipidemia Heart disease Hypertension Ovarian cyst Denies family history of Colorectal cancer Social History Smoking Status: Never smoker Second Hand Exposure: No; Do You Dip or Chew Tobacco: No; Tobacco Cessation Education Requested by Patient: No Hx Alcohol Use: No Hx Substance Use: No Preferred Language: Yi Communication Ability: Effective Computer Analyst Required: No Beliefs That Will Affect Care: None marital status: marital status details: David Ambrosio(32) [phone] Current Living Situation: Spouse Current Living Situation Comment: - David and 2 children current occupational status: unemployed current occupation: homemaker Other Information That Helps Us Care for You: No Feels Safe at Home: Yes Safety Concerns: Feels Safe At This Time Childhood Exposure to Second-Hand Smoke: No caffeine: Yes Dental Care, Regularly: Yes Physical Activity Frequency: 3-4 Times per Week Seatbelt Use: always Sunscreen Use: Yes Do you think of yourself as: straight/heterosexual Assistive Devices: None Review of Systems as per Subjective / HPI Physical Exam Constitutional: WD/WN, vitals as above Respiratory: normal respiratory effort, lungs clear to auscultation Cardiovascular: Rate/Rhythm: regular rate and regular rhythm Gastrointestinal (Abdomen): soft gravid nt efw 7-8# Musculoskeletal: no edema nontender calves Neurologic: grossly normal Psychiatric: A+Ox3, euthymic affect Genitourinary: Manual OB Exam: + cervical dilation 4 cm, + cervical effacement (75%), + station -2 and + amniotic fluid (arom) clear OB Exam Monitor Tracing: + external FHT monitor used, + external uterine monitor used, + category I and + normal FHT variability Results & Data Vital Signs (Past 12 Hours) Vital Signs Temp Pulse Resp BP Pulse Ox 03/08/24 17:37 83 98 03/08/24 17:32 88 98 03/08/24 17:30 18 03/08/24 17:30 98.6 F 18 03/08/24 16:53 75 121/78 03/08/24 16:50 98.2 F 75 18 121/78 Coding Level of Care Code None Diagnoses Encounter for induction of labor Z34.90
[2024-03-08] MEDS ORDERED: SODIUM CHLORIDE 0.9% 250 ML IV PRN (18:00)
[2024-03-08] MEDS: BUPIVACAINE 0.25% PF 30 ML VIAL ONE (18:29)
[2024-03-08] MEDS: LIDOCAINE 2%/EPINEPHRINE 1:200,000 20 ML PF ONE (18:29)
[2024-03-08] MEDS: fentANYL 2 MCG/ML BUPIVacaine 0.125%-NSS 100ML BAG ONE (18:30)
[2024-03-08] MEDS: ePHEDrine sulfate 50 MG/ML AMP ONE (18:35)
[2024-03-08] MEDS: SODIUM CHLORIDE 0.9% PF INJ 10 ML VIAL ONE (18:35)
[2024-03-08] MEDS: fentaNYL citrate PF 100 MCG/2 ML VIAL ONE (18:35)
[2024-03-08] MEDS ORDERED: NALOXONE HCL 0.4 MG/1 ML VIAL/CARP IV PRN (18:36)
[2024-03-08] MEDS ORDERED: LIDOCAINE 2% MPF LOCAL 5 ML VIAL EPI PRN (18:36)
[2024-03-08] MEDS ORDERED: BUPIVACAINE 0.25% PF 30 ML VIAL EPI PRN (18:36)
[2024-03-08] MEDS ORDERED: diphenhydrAMINE 50 MG/ML VIAL IV PRN (18:36)
[2024-03-08] MEDS ORDERED: fentANYL 2 MCG/ML BUPIVacaine 0.125%-NSS 100ML BAG EPI PRN (18:36)
[2024-03-08] MEDS ORDERED: NALBUPHINE HCL 5 MG in SYRINGE 0 ML IV PRN (18:36)
[2024-03-08] MEDS ORDERED: NALOXONE HCL 1 MG in SODIUM CHLORIDE 0.9% 1,000 ML IV PRN (18:36)
[2024-03-08] MEDS ORDERED: fentaNYL citrate PF 100 MCG/2 ML VIAL EPI PRN (18:36)
[2024-03-08] MEDS ORDERED: ROPIVACAINE 0.5% PF 5 MG/ML 20 ML VIAL EPI PRN (18:36)
[2024-03-08] MEDS ORDERED: ePHEDrine sulfate 50 MG/ML AMP IV PRN (18:36)
[2024-03-08] MEDS ORDERED: SODIUM CHLORIDE 0.9% PF INJ 10 ML VIAL EPI PRN (18:36)
--- NOTE | 2024-03-08 18:36 | Anesthesiology Consultation ---
Date of Service March 08, 2024 Assessment & Plan Chart Review Chart Review: Acceptable Risk for Labor Epidural Consults Requested none ASA ASA2 Proposed Anesthesia Anesthesia Type: Labor Epidural Risk / Benefits Reviewed With: PT / POA / Parent / Guardian, Accepts Plan and Informed Consent Obtained History Height/Weight Height: 5 ft 7 in Weight: 107.501 kg Allergies Allergy/AdvReac Type Severity Reaction Status Date / Time clindamycin Allergy Hives Verified 03/07/24 10:44 Sulfa (Sulfonamide Allergy Hives Verified 03/07/24 10:44 Antibiotics) sulfamethoxazole Allergy Hives Verified 03/07/24 10:44 [From ] trimethoprim [From ] Allergy Hives Verified 03/07/24 10:44 Medications Home Medications Medication Instructions Recorded Confirmed Last Taken prenat.vits,diana,esi-spen-piwxt 1 tab PO DAILY 08/17/21 03/07/24 03/28/22 09:00 Active Medications Generic Name Dose Route Start Last Admin Trade Name Freq PRN Reason Stop Dose Admin Lactated Ringer's 1,000 mls @ 125 mls/hr 03/08/24 16:44 03/08/24 18:20 Lr IV 03/10/24 16:43 999 mls/hr .Q8H PRN Administration L&D Protocol Protocol Past Medical History Medical History hemorrhage History of chicken pox Encounter for care and examination after delivery Encounter for pre-operative examination HSV-1 (herpes simplex virus 1) infection Has h/o mouth ulcers - 3 lifetime outbreaks Irregular periods Exercise / Class Metabolic Activity II 4-5 Yardwork/Stairs/Walk up hill Past Family History Family History Grandfather (Paternal) Diabetes Sister Thyroid disease Other Arthritis Breast cancer Depression Dyslipidemia Heart disease Hypertension Ovarian cyst Denies family history of Colorectal cancer Past Surgical History Surgical History S/P dilatation and curettage Status post vaginal delivery H/O wrist surgery S/P tonsillectomy Hx of LASIK Past Anesthesia History No Hx of Anesthesia Complications and No Family Hx of Anesthesia Complications History of PONV No Hx of PONV and No Hx of Motion Sickness Social History Smoking Status: Never smoker Do You Dip or Chew Tobacco: No Hx Alcohol Use: No Hx Substance Use: No substance use type: does not use Physical Exam Vital Signs Last Vital Signs Temp 98.6 F 03/08/24 17:30 Pulse 73 03/08/24 18:34 Resp 18 03/08/24 17:30 BP 126/80 03/08/24 18:34 Pulse Ox 98 03/08/24 18:29 ENMT Mouth: no dentition abnormality Thyromental Distance: > or= 3.5 Finger Breadths Mallampati Class: II Neck normal visual inspection Respiratory normal respiratory effort Auscultation: lungs clear to auscultation bilaterally Cardiovascular Rate/Rhythm: regular rate and regular rhythm Testing Laboratory Results 03/08/24 17:04
[2024-03-08] MEDS: OXYTOCIN 30 UNITS/NSS 30 UNITS/500 ML BAG IV PRN (18:37)
[2024-03-08] MEDS: CALCIUM CARBONATE 500 MG CHEWABLE TAB PO PRN (18:44)
[2024-03-08] MEDS: BUPIVACAINE 0.25% PF 30 ML VIAL EPI STA (20:29)
[2024-03-08] MEDS: LIDOCAINE 2%/EPINEPHRINE 1:200,000 20 ML PF EPI STA (20:29)
[2024-03-08] MEDS: SODIUM CHLORIDE 0.9% PF INJ 10 ML VIAL EPI STA (20:29)
[2024-03-08] MEDS: fentaNYL citrate PF 100 MCG/2 ML VIAL EPI STA (20:29)
[2024-03-08] MEDS: FAMOTIDINE 20 MG TAB PO SCH (21:49)
[2024-03-08] MEDS: ONDANSETRON INJ 2 MG/ML 2 ML VIAL IV PRN (22:42)
--- NOTE | 2024-03-08 23:53 | Delivery Summary ---
Vaginal Delivery Summary Date of Service March 08, 2024 Vaginal Delivery Summary The patient dilated to complete and pushed to deliver a viable male Apgars 7 and 8 via over intact perineum. Mouth and nose bulb suctioned at perineum. Shoulders and body delivered with ease. was vigorous and crying at . Cord clamped at 30+ seconds of life and infant to maternal abdomen where the cord was then doubly clamped and cut. Placenta delivered spontaneously and intact, three-vessel cord. Hemostasis achieved with dilute pitocin and uterine massage. Cervix and sulci intact. QBL 107 cc. Mother and baby stable in recovery. [facility] Vaginal Delivery Charge Delivery Type Details:
[2024-03-09] MEDS ORDERED: BENZOCAINE 20% SPRY 85 APPLN/85 GM CAN EXT PRN (00:18)
[2024-03-09] MEDS ORDERED: oxyCODONE/ACETAMINOPHEN 5mg/325mg TAB PO PRN (00:18)
[2024-03-09] MEDS ORDERED: HYDROCORTISONE ACETATE 25 MG SUPP PR PRN (00:18)
[2024-03-09] MEDS ORDERED: bisacodyL 10 MG SUPP PR PRN (00:18)
[2024-03-09] MEDS ORDERED: OXYTOCIN 30 UNITS/NSS 30 UNITS/500 ML BAG IV PRN (00:18)
[2024-03-09] MEDS: OXYTOCIN 20 UNITS/LR 1,002 ML IV SCH (00:54)
[2024-03-09] MEDS: DIPHTHER/TETAN/PERTUS Vaccine (Tdap, Adol/Adult) 0.5mL IM ONE (01:08)
[2024-03-09] MEDS: IBUPROFEN 600 MG TAB PO PRN (02:34)
--- NOTE | 2024-03-09 06:49 | Obstetrical Progress Note ---
Date of Service March 09, 2024 Assessment & Plan (1) exam: Plan stable, routine care. breast, rh pos , ri. Day #:: 1 Physical Exam Constitutional WD/WN, vitals as above Respiratory normal respiratory effort, lungs clear to auscultation Cardiovascular Rate/Rhythm: regular rate and regular rhythm Gastrointestinal (Abdomen) Inspection/Auscultation: abdomen normal to inspection Percussion/Palpation: abdomen soft Fundus firm 2 above, needs to urinate Musculoskeletal nt calves tr edema Neurologic grossly normal Psychiatric A+Ox3, euthymic affect Results & Data Vital Signs (Past 12 Hours) Vital Signs Temp Pulse Pulse Resp BP BP Pulse Ox 03/09/24 04:08 98.1 F 67 18 128/82 03/09/24 01:51 98.1 F 18 03/09/24 01:51 60 114/75 03/09/24 01:19 63 118/80 03/09/24 00:44 49 L 123/73 03/09/24 00:29 58 L 123/64 03/09/24 00:13 98.6 F 18 03/09/24 00:13 57 L 109/67 03/08/24 23:58 61 114/66 03/08/24 23:44 18 03/08/24 23:44 63 123/74 03/08/24 23:29 76 98 03/08/24 23:28 74 91 03/08/24 23:24 64 100 03/08/24 23:20 79 86 L 03/08/24 23:19 80 100 03/08/24 23:14 67 100 03/08/24 23:09 67 97 03/08/24 23:04 85 97 03/08/24 23:02 67 121/72 03/08/24 23:00 69 18 94 03/08/24 22:59 64 97 03/08/24 22:54 64 99 03/08/24 22:49 63 99 03/08/24 22:47 63 123/65 03/08/24 22:44 67 98 03/08/24 22:39 84 98 03/08/24 22:34 59 L 98 03/08/24 22:33 70 121/67 03/08/24 22:29 60 98 03/08/24 22:24 67 98 03/08/24 22:19 77 97 03/08/24 22:16 76 123/77 06/27/24 22:14 81 99 03/08/24 22:09 77 98 03/08/24 22:04 71 96 03/08/24 22:02 57 L 125/84 03/08/24 22:00 18 03/08/24 22:00 98.6 F 18 03/08/24 21:59 63 100 03/08/24 21:54 60 98 03/08/24 21:49 59 L 98 03/08/24 21:46 56 L 129/83 03/08/24 21:44 52 L 97 03/08/24 21:39 58 L 98 03/08/24 21:34 68 98 03/08/24 21:30 18 03/08/24 21:30 18 03/08/24 21:29 60 97 03/08/24 21:24 63 100 03/08/24 21:19 50 L 99 03/08/24 21:16 45 L 130/88 03/08/24 21:14 54 L 98 03/08/24 21:09 60 100 03/08/24 21:04 64 98 03/08/24 21:01 57 L 125/78 03/08/24 21:00 18 03/08/24 21:00 18 03/08/24 20:59 56 L 99 03/08/24 20:54 60 98 03/08/24 20:49 55 L 99 03/08/24 20:46 56 L 121/77 03/08/24 20:44 53 L 99 03/08/24 20:39 58 L 98 03/08/24 20:34 57 L 98 03/08/24 20:31 58 L 119/73 03/08/24 20:30 18 03/08/24 20:30 18 03/08/24 20:29 53 L 98 03/08/24 20:24 60 100 03/08/24 20:19 51 L 99 03/08/24 20:17 60 125/76 03/08/24 20:14 63 99 03/08/24 20:09 61 100 03/08/24 20:04 58 L 99 03/08/24 20:01 63 127/74 03/08/24 20:00 18 03/08/24 20:00 18 03/08/24 19:59 61 99 03/08/24 19:54 59 L 100 06/27/24 19:49 60 96 03/08/24 19:47 61 113/69 03/08/24 19:44 60 99 03/08/24 19:39 62 98 03/08/24 19:34 61 99 03/08/24 19:32 61 102/61 03/08/24 19:30 18 03/08/24 19:30 98.8 F 18 03/08/24 19:29 63 99 03/08/24 19:24 61 98 03/08/24 19:19 60 98 03/08/24 19:16 68 126/78 03/08/24 19:14 65 99 03/08/24 19:09 72 99 03/08/24 19:04 64 98 03/08/24 19:02 66 136/73 03/08/24 19:00 18 03/08/24 19:00 18 03/08/24 18:59 64 98 03/08/24 18:54 63 99 03/08/24 18:49 68 98 O2 Del Method 03/09/24 04:08 Room Air 03/09/24 01:51 03/09/24 01:51 03/09/24 01:19 03/09/24 00:44 03/09/24 00:29 03/09/24 00:13 03/09/24 00:13 03/08/24 23:58 03/08/24 23:44 03/08/24 23:44 03/08/24 23:29 03/08/24 23:28 03/08/24 23:24 03/08/24 23:20 03/08/24 23:19 03/08/24 23:14 03/08/24 23:09 03/08/24 23:04 03/08/24 23:02 03/08/24 23:00 03/08/24 22:59 03/08/24 22:54 03/08/24 22:49 03/08/24 22:47 03/08/24 22:44 03/08/24 22:39 03/08/24 22:34 03/08/24 22:33 03/08/24 22:29 03/08/24 22:24 03/08/24 22:19 03/08/24 22:16 03/08/24 22:14 03/08/24 22:09 03/08/24 22:04 03/08/24 22:02 03/08/24 22:00 03/08/24 22:00 03/08/24 21:59 03/08/24 21:54 03/08/24 21:49 03/08/24 21:46 03/08/24 21:44 03/08/24 21:39 03/08/24 21:34 03/08/24 21:30 03/08/24 21:30 03/08/24 21:29 03/08/24 21:24 03/08/24 21:19 03/08/24 21:16 03/08/24 21:14 03/08/24 21:09 03/08/24 21:04 03/08/24 21:01 03/08/24 21:00 03/08/24 21:00 03/08/24 20:59 03/08/24 20:54 03/08/24 20:49 03/08/24 20:46 03/08/24 20:44 03/08/24 20:39 03/08/24 20:34 03/08/24 20:31 03/08/24 20:30 03/08/24 20:30 03/08/24 20:29 03/08/24 20:24 03/08/24 20:19 03/08/24 20:17 03/08/24 20:14 03/08/24 20:09 03/08/24 20:04 03/08/24 20:01 03/08/24 20:00 03/08/24 20:00 03/08/24 19:59 03/08/24 19:54 03/08/24 19:49 03/08/24 19:47 03/08/24 19:44 03/08/24 19:39 03/08/24 19:34 03/08/24 19:32 03/08/24 19:30 03/08/24 19:30 03/08/24 19:29 03/08/24 19:24 03/08/24 19:19 03/08/24 19:16 03/08/24 19:14 03/08/24 19:09 03/08/24 19:04 03/08/24 19:02 03/08/24 19:00 03/08/24 19:00 03/08/24 18:59 03/08/24 18:54 03/08/24 18:49
--- NOTE | 2024-03-09 06:57 | Anesthesia Procedure Note ---
Date of Service March 09, 2024 Anesthesia Post Epidural Note Vital Signs Vital Signs: Temp Pulse Resp BP Pulse Ox O2 Del Method 36.7 C 67 18 128/82 98 Room Air 03/09/24 04:08 03/09/24 04:08 03/09/24 04:08 03/09/24 04:08 03/08/24 23:29 03/09/24 04:08 Notes Mental Status: alert / awake / arousable Nausea / Vomiting: adequately controlled Pain: adequately controlled Airway Patency, RR, SpO2: stable & adequate BP & HR: stable & adequate Hydration State: stable & adequate Neuraxial Anesthesia: was administered and sensory block is resolving Anesthetic Complications: no major complications apparent and Pt Satisfied with anesthetic care Epidural: Removed without complications and With tip intact
[2024-03-09] MEDS: DOCUSATE SODIUM 100 MG CAP PO SCH (07:40)
[2024-03-09] MEDS: PRENATAL VITAMIN 1 TAB PO SCH (07:41)
--- NOTE | 2024-03-09 07:48 | Communication Note ---
Date of Service: March 09, 2024 Informed by nursing that pt does want to go home tonight, even if its [place] or thereafter. order placed.
[2024-03-09] MEDS: ACETAMINOPHEN 325 MG TAB PO PRN (15:08)
[2024-03-09 19:34] VITALS: BP 124/80; PULSE 61; RESP 18; TEMP 97.7; O2SAT 98
== END 2024-03-09 23:50 | disposition home or self-care (01) | DRG 807 ==
LOC: 4S1 16:37 → 4E1 03-09 03:00